=== PATIENT | female | born 1995 | race Caucasian/White ===

== ENCOUNTER 2024-03-31 22:28 | Emergency (ER) | payer BC ==
[2024-03-31] MEDS: Albuterol/Ipratropium 3.0-0.5 MG/3 ML Neb Soln NEB ONE (22:40)
[2024-03-31] MEDS: Levalbuterol HCl 1.25 MG/3 ML Neb NEB ONE ×2 (22:51→23:17)
[2024-03-31] MEDS ORDERED: methylPREDNISolone Sodium Succinate 125 MG/2 ML SDV IVPUSH ONE (23:23)
[2024-03-31 23:32] LABS: CORONAVIRUS COVID-19 NAA NEGATIVE (NEGATIVE); INFLUENZA A NAA NEGATIVE (NEGATIVE); INFLUENZA B NAA NEGATIVE (NEGATIVE); RESPIRATORY SYNCYTIAL VIR NAA NEGATIVE (NEGATIVE)
[2024-03-31] MEDS: methylPREDNISolone Sodium Succinate 125 MG/2 ML SDV IM ONE (23:42)
== END 2024-04-01 00:05 | disposition home or self-care (01) ==
LOC: JP.ED 22:28
DX: J45.901 Unspecified asthma with (acute) exacerbation (principal); Z86.16 Personal history of COVID-19
CPT/HCPCS: 0241U; 81025; 94640; 96372; 99285; J2919; J7612; J7620